=== PATIENT | female | born 1960 | race African-American/Black ===

== ENCOUNTER 2017-06-15 07:33 | Outpatient (CLI) | payer OTHER ==
--- NOTE | 2017-06-15 09:17 | ULT ---
RENAL ULTRASOUND: Clinical history: Renal cysts, hematuria. FINDINGS: There is a circumscribed focus of decreased echogenicity within the medial aspect of the upper to mid left kidney measuring up to approximately 1.6 cm. No suspicious renal lesions otherwise depicted. Bi laterally, no overt hydronephrosis. Urinary bladder is decompressed limiting evaluation. IMPRESSION: Findings consistent with a left renal cyst, without significant interval detrimental change, when com paring to 316. POS: PAULA
== END 2017-06-15 07:34 | disposition home or self-care (01) ==
LOC: ULT 07:33
PROVIDERS: ATTEND Urology
DX: Q61.01 Congenital single renal cyst (principal)
CPT/HCPCS: 76770

== ENCOUNTER 2025-02-20 15:14 | Emergency (ER) | payer OTHER, SELFPAY ==
[2025-02-20] MEDS ORDERED: Ibuprofen 200 MG TAB ONE (17:29)
[2025-02-20] MEDS ORDERED: Orphenadrine Citrate 60 MG/2 ML VIAL ONE (17:30)
== END 2025-02-20 19:13 | disposition home or self-care (01) ==
LOC: ERS 15:14
DX: M25.562 Pain in left knee (principal)
CPT/HCPCS: 96372; J2360; J3010